=== PATIENT | female | born 1940 | race Caucasian/White ===

== ENCOUNTER → 2019-04-30 10:05 | Outpatient (BNVA) | payer MEDICARE, SELFPAY | PROVIDERS: Visit Provider Emergency Medicine | DX: R07.9 Chest pain, unspecified (principal); R05 Cough | CPT/HCPCS: 71046 ==

== ENCOUNTER 2021-01-25 13:19 | Outpatient (CLI) | payer MEDICARE, SELFPAY ==
--- NOTE | 2021-01-25 13:36 | MR_ITS ---
WS: [id number] MRI LEFT HIP without CONTRAST. COMPARISON: None Multiplanar, multisequence imaging is performed without contrast. Abnormal signal in the LEFT gluteus minimus and medius muscles. More significant increased signal con sistent with edema or myositis in the gluteus medius muscle. There is also increased fluid signal ext ending into the attachment of the gluteus medius to the greater trochanter. There is a small amount o f fluid in the greater trochanter bursa. There is fluid signal extending above the greater trochanter into the gluteus medius along the tendon. No fractures or marrow edema. No free fluid in the pelvis. MR/MR hip LT wo con* [id number] IMPRESSION: 1. Mild LEFT greater trochanteric bursitis. 2. Mild myositis involving the LEFT gluteus minimus and medius muscles. There is a small amount of fluid extending into the gluteus medius suggesting a parti al tendon tear at the greater trochanter.
--- NOTE | 2021-01-25 13:37 | MR_ITS ---
WS: [id number] MRI LUMBAR SPINE NONCONTRAST HISTORY: LUMBAGO WITH SCIATICA, LEFT hip pain for 5 months. COMPARISON: None available. TECHNIQUE: Sagittal and axial multisequence imaging is submitted. Degenerative thoracolumbar scoliosis. RIGHT curvature lumbar spine and LEFT curvature thoracic spine. Increase in the thoracic kyphosis. Small central disc protrusion at T7-8 causing mild contact on the thoracic cord. L4 anterolisthesis by 5 mm. No acute lumbar spine fracture. There is a small amount of marrow edema w ithin the superior and inferior articular facets of L4 and L5 bilaterally with adjacent soft tissue e di from synovitis. Mild disc space narrowing and desiccation throughout the lumbar spine. Conus terminates normally at L1-2 disc level. L1-L2: Mild facet arthritis. No stenosis. L2-L3: Mild annular disc bulging. Moderate ligamentum flavum and facet arthritis. Very mild subarticu lar recess encroachment. No high-grade stenosis. L3-L4: Mild annular disc bulging with a shallow central disc protrusion. Moderate ligamentum flavum a nd facet arthritis. Mild central stenosis with encroachment into the lateral recesses. Mild bilateral foraminal narrowing. L4-L5: Mild anterolisthesis of L4 with unroofing of the disc. Mild encroachment upon the thecal sac b y the disc and ligamentum flavum and facet arthritis. Broad-based disc extends into the LEFT proximal foramen contacting the LEFT L4 and L5 nerve roots. Mild central and RIGHT foraminal stenosis and mod erate on the LEFT. Increased fluid within the LEFT facet joint with widening. L5-S1: Mild disc bulging. No stenosis. Mild facet arthritis. Paravertebral soft tissues are normal. Very mild ectasia abdominal aorta. MR/MR lumbar spine wo con* [id number] IMPRESSION: 1. L4 anterolisthesis by 5 mm. 2. Facet joint inflammatory changes with a small amount of edema in the articu lar facets at L4 and L5 consistent with synovitis. Mild increased fluid within the LEFT facet joint. 3. Broad-based disc protrusion extends into the proximal LEFT foramen at L3-4 with contact on both the RIGHT L4 and L5 nerve roots and moderate stenosis. 4. Mild central and RIGHT foraminal stenosis at L4-5 due to facet and ligament um and disc disease. 5. Mild central, bilateral subarticular recess and foraminal narrowing at L3-4 .
== END 2021-01-25 13:20 | disposition home or self-care (01) ==
PROVIDERS: Visit Provider Family Medicine
DX: M48.061 Spinal stenosis, lumbar region without neurogenic claudication (principal); M51.26 Other intervertebral disc displacement, lumbar region; M70.62 Trochanteric bursitis, left hip; M60.9 Myositis, unspecified
CPT/HCPCS: 72148; 73721

== ENCOUNTER 2021-12-13 11:09 | Emergency (ER) | payer MEDICARE, SELFPAY ==
[2021-12-13 11:15] VITALS: BMI 25.2
--- NOTE | 2021-12-13 11:16 | XRR_ITS ---
PROCEDURE INFORMATION: Exam: XR Chest Exam date and time: 12/13/2021 12:00 PM Age: 81 years old Clinical indication: Pain; Chest pressure; Additional info: Chest pain/pressure TECHNIQUE: Imaging protocol: Radiologic exam of the chest. Views: 1 view. COMPARISON: CR XR chest 2V* [id number] 04/30/2019 10:15 AM FINDINGS: Lungs: There is mildly increased lung markings, suggestive of mild pulmonary congestion. No focal consolidation. Pleural spaces: Unremarkable. No pleural effusion. No pneumothorax. Heart/Mediastinum: Stable cardiomediastinal silhouette. Bones/joints: Degenerative changes of the spine seen. XR/XR chest 1V portable [id number] IMPRESSION: Imaging findings suggestive of mild pulmonary congestion.
[2021-12-13 11:17] VITALS: BP 168/81; PULSE 84; RESP 17; TEMP 36.7; O2SAT 96
--- NOTE | 2021-12-13 11:24 | ECG_ITS ---
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 Measurements Intervals [place] Rate: 81 P: 63 OR: 162 QRS: 52 QRSD: 90 T: 58 QT: 379 QTc: 441 Interpretive Statements SINUS RHYTHM No previous ECG available for comparison Electronically Signed On 12-13-2021 13:53:08 CDT by Ana María Moulton M.D. [id number]
[2021-12-13] MEDS: aspirin 81 mg Chew Tablet 324 MG PO (11:43)
[2021-12-13 11:53] LABS: Basophils % 0.5 %; Eosinophils # 0.2 10^3/uL (0.0-0.8); Eosinophils % 2.5 %; Hemoglobin 14.4 g/dL (11.5-15.3); Lymphocytes # 2.3 10^3/uL (0.8-4.8); Lymphocytes % 29.8 %; Mean Corpuscular HGB Conc 32.7 g/dL (30.0-36.0); Mean Corpuscular Hemoglobin 30.6 pg (28.0-34.0); Mean Corpuscular Volume 93.4 fl (81-99); Mean Platelet Volume 10.1 fL (7.4-10.4); Monocytes # 0.5 10^3/uL (0.2-0.9); Neutrophils # 4.59 10^3/uL (1.8-7.7); Neutrophils % 59.8 %; Nucleated Red Blood Cells % 0 %; Platelet Count 226 10^3/cmm (130-400); Red Blood Count 4.71 10^6/uL (4.1-5.3); Red Cell Distribution Width 13.2 % (12.1-15.1); White Blood Count 7.7 10^3/uL (4.0-10.0)
--- NOTE | 2021-12-13 12:36 | ED_ITS ---
HPI - Chest Pain General: Chief Complaint: Chest Pain Stated Complaint: chest pain/pressure Time Seen by Provider: 12/13/21 11:16 Source: patient Mode of arrival: ambulatory History of Present Illness: 81-year-old female presents emergency room complaining of upper left chest pain. Patient states it feels like it ache she describes it like something caught in her throat although she is able to swallow. Started a few hours earlier today she does not have any accompanying short of breath or radiation of pain. She has not had any discomfort previously no previous history of cardiac disease no previous cardiac testing or francisco luation. Patient is not diabetic she does not smoke. She denies fever sweats chills recent illness. No cough. MD complaint: chest pain Onset (ago): hour(s) Timing of current episode: episodic Onset: during rest Pain location: left chest Pain radiation: none Severity: mild Quality: aching and heaviness Relieving factors: nothing Exacerbating factors: nothing Associated symptoms: Deny abdominal pain, diaphoresis, dyspnea, fever(s), leg edema, nausea, palpitations, sense of impending doom, syncope or vomiting Treatment prior to arrival: none Review of Systems Const: Denies: fever(s), chills, fatigue, malaise or diaphoresis ENMT: Denies: throat pain, ear or mastoid pain, nasal discharge or nasal congestion Card: Reports: chest pain; Denies: palpitations, irregular heart rhythm, edema, swelling of feet/ankles or syncope Resp: Denies: dyspnea GI: Denies: abdominal pain, nausea or vomiting : Denies: flank pain, difficulty voiding, dysuria, urinary frequency or urinary urgency Skin/Breast: Denies: rash or pruritus PFSH ED PFSH: Family History Mother Stroke Father Cancer lung cancer Social History Smoking and tobacco status: former smoker Quit status (tobacco): has quit using tobacco Year quit tobacco: 1990 Second hand smoke exposure: No Alcohol intake: current Alcohol intake frequency: holidays/special occasions only Alcohol type: wine History of recent travel: No Physical Exam Const: COMMON NORMALS: no acute distress GENERAL APPEARANCE: cooperative and comfortable ORIENTATION/CONSCIOUSNESS: Yes awake, Yes oriented to person, Yes oriented to place and Yes oriented to time HENMT: COMMON NORMALS: normocephalic, atraumatic and hearing grossly normal bilaterally HEAD & SCALP: normocephalic and atraumatic Lymph: LYMPHATIC: no lymphadenopathy noted and no lymphedema noted Resp: COMMON NORMALS: normal respiratory effort, No retractions, No use of acc essory muscles and clear to auscultation bilaterally AUSCULTATION: clear to auscultation bilaterally Cardio: COMMON NORMALS: regular rate, regular rhythm and No murmurs present (Cardio) RATE: regular rate RHYTHM: regular rhythm GI: COMMON NORMALS: Soft to palpation and No hepatosplenomegaly present AUSCULTATION: Yes normoactive bowel sounds PALPATION: Yes Soft to palpation, No Tenderness to palpation present (GI), No Guarding due to palpation present (G I) and Yes No hepatosplenomegaly present Extremity: COMMON NORMALS: normal to inspection, capillary refill normal, no clubbing, cyanosis or edema, no calf tenderness and no pedal edema Neuro: SENSORIUM/ORIENTATION: Yes oriented to person, Yes oriented to place and Yes oriented to time Skin: COMMON NORMALS: no rashes or lesions noted GENERAL SKIN EXAM: no rashes or lesions noted Course Vital Signs: Vital signs: Vital Signs Temperature 98.0 F 12/13/21 11:17 Pulse Rate 84 12/13/21 11:17 Respiratory Rate 17 12/13/21 11:17 Blood Pressure 168/81 12/13/21 11:17 Pulse Oximetry 96 12/13/21 11:17 Oxygen Delivery Me thod 12/13/21 11:17 MDM - Chest Pain Medical Decision Making Labs imaging and EKG reviewed as found in the chart. We will discharge patient home set up outpatient [facility] sestamibi stress test are Prilosec 20 p.o. daily and aspirin 81 mg daily avoid strenuous activity. Medical Records I reviewed the patient's medical records. Lab Data I reviewed the patient's lab results. : 12/13/21 11:49 12/13/21 11:34 Radiology Impressions Chest X-Ray 12/13/21 11:16 IMPRESSION: Imaging findings suggestive of mild pulmonary congestion. Laboratory Results WBC 7.7 10^3/uL (4.0-10.0) 12/13/21 11:49 RBC 4.71 10^6/uL (4.1-5.3) 12/13/21 11:49 Hgb 14.4 g/dL (11.5-15.3) 12/13/21 11:49 Hct 44.0 % (37.0-47.0) 12/13/21 11:49 MCV 93.4 fl (81-99) 12/13/21 11:49 MCH 30.6 pg (28.0-34.0) 12/13/21 11:49 MCHC 32.7 g/dL (30.0-36.0) 12/13/21 11:49 RDW 13.2 % (12.1-15.1) 12/13/21 11:49 Plt Count 226 10^3/cmm (130-400) 12/13/21 11:49 MPV 10.1 fL (7.4-10.4) 12/13/21 11:49 Neut % (Auto) 59.8 % 12/13/21 11:49 Lymph % (Auto) 29.8 % 12/13/21 11:49 [place] % (Auto) 7.0 % 12/13/21 11:49 Eos % (Auto) 2.5 % 12/13/21 11:49 Baso % (Auto) 0.5 % 12/13/21 11:49 Neut # (Auto) 4.59 10^3/uL (1.8-7.7) 12/13/21 11:49 Lymph # (Auto) 2.3 10^3/uL (0.8-4.8) 12/13/21 11:49 [place] # (Auto) 0.5 10^3/uL (0.2-0.9) 12/13/21 11:49 Eos # (Auto) 0.2 10^3/uL (0.0-0.8) 12/13/21 11:49 Baso # (Auto) 0.0 10^3/uL (0.0-0.1) 12/13/21 11:49 Nucleated RBC % (auto) 0 % 12/13/21 11:49 Nucleated RBCs # 0.0 /100WBC 12/13/21 11:49 Sodium Cancelled 12/13/21 11:49 Potassium Cancelled 12/13/21 11:49 Chloride Cancelled 12/13/21 11:49 Carbon Dioxide Cancelled 12/13/21 11:49 Anion Gap Cancelled 12/13/21 11:49 BUN Cancelled 12/13/21 11:49 Creatinine Cancelled 12/13/21 11:49 GFR Calculation Cancelled 12/13/21 11:49 Glucose Cancelled 12/13/21 11:49 Calculated Osmolality Cancelled 12/13/21 11:49 Calcium Cancelled 12/13/21 11:49 Total Bilirubin Cancelled 12/13/21 11:49 AST Cancelled 12/13/21 11:49 ALT Cancelled 12/13/21 11:49 Alkaline Phosphatase Cancelled 12/13/21 11:49 Troponin T Baseline Cancelled 12/13/21 11:49 Troponin T 120 Minute 6.00 ng/L (0-10) 12/13/21 13:59 Delta Troponin T 0 ABS# (0-10) 12/13/21 13:59 NT-Pro-B Natriuret Pep Cancelled 12/13/21 11:49 Total Protein Cancelled 12/13/21 11:49 Albumin Cancelled 12/13/21 11:49 Globulin Cancelled 12/13/21 11:49 Discharge Plan Discharge Patient Disposition: Home Clinical Impression: Atypical chest pain Condition: Stable Prescriptions: New omeprazole 20 mg capsule,delayed release(DR/EC) 20 mg PO DAILY 28 Days Qty: 30 0RF aspirin 81 mg tablet,delayed release (DR/EC) 81 mg PO DAILY Qty: 30 0RF No Action albuterol sulfate 90 mcg/actuation HFA aerosol inhaler 2 puff INHALATION Q6H PRN (Reason: shortness of breath or wheezing) Qty: 8.5 0RF [id number]-[id number]-[id number] [Bromfed DM] 2-30-10 mg/5 mL syrup 5 ml PO Q6H PRN (Reason: cold symptoms) Qty: 160 0RF Discharge Orders: Discharge ED (Routine); Ordered 12/13/21 Ordered By: August Rios Referrals: Domenic Holloway [Primary Care Provider] - Patient Instructions: Opioid Safety, Pain Management Activity Restrictions/Additional Instructions: Limit exertional activity. Take aspirin 81 mg daily. Start omeprazole 20 mg daily Case management make arrangements. Of a Lexiscan sestamibi stress test. Coding Level of Care Code ED Wire Twister for Chg Fwd Exam Comprehensive
--- NOTE | 2021-12-13 13:16 | ECG_ITS ---
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 Measurements Intervals [place] Rate: 66 P: 55 [place]: 194 QRS: 5 QRSD: 92 T: 32 QT: 434 QTc: 458 Interpretive Statements SINUS RHYTHM POSSIBLE RIGHT VENTRICULAR CONDUCTION DELAY [RSR (QR) IN V1/V2] Compared to ECG 12/13/2021 11:24:22 No significant changes Electronically Signed On 12-13-2021 13:55:08 CDT by Ana María Moulton M.D. [id number]
[2021-12-13 13:21] LABS: Troponin(5th) Baseline 6 ng/L (0-10)
[2021-12-13 13:29] LABS: Alanine Aminotransferase 13 U/L (0-33); Albumin Level 3.7 g/dL (3.5-5.2); Alkaline Phosphatase 79 U/L (35-105); Anion Gap 13.2 (5-19); Aspartate Amino Transferase 15 U/L (0-32); Blood Urea Nitrogen 12 mg/dL (8-23); Calcium 8.9 mg/dL (8.5-10.5); Carbon Dioxide 27 mmol/L (22-29); Chloride 102 mmol/L (98-107); Creatinine Clr Calc Pharmacy 54.6785; Globulin 2.3 g/dL (1.3-4.6); Glucose 76 mg/dL (65-115); NT Pro B Type Natriuretic Pept 240 pg/mL (0-450); Osmolality Calculated 285 mOsm/kg (285-295); Potassium 4.2 mmol/L (3.5-5.1); Sodium 138 mmol/L (136-145); Total Bilirubin 0.2 mg/dL (0.15-1.2)
[2021-12-13 14:54] LABS: Troponin 5 2HR Delta 0 ABS# (0-10)
--- NOTE | 2021-12-14 14:44 | DCPLANNER ---
Addendum entered by Veronica Thomas 03/21/22 14:00: Patient had a stress test scheduled - patient did attend appointment. Original Note: business change manager had message to schedule an outpatient stress test for patient. business change manager faxed signed order to centralized scheduling, who will call patient with appointment information. business change manager sent notification to patients primary care physician, that ER physician ordered a stress test from the ER.
== END 2021-12-13 14:54 | disposition home or self-care (01) ==
PROVIDERS: Emergency Provider Family Medicine; PCP Family Medicine
DX: R07.89 Other chest pain (principal)
CPT/HCPCS: 36415; 71045; 80053; 83880; 84484; 85025; 93005; 99285

== ENCOUNTER 2022-02-23 10:20 | Outpatient (CLI) | payer MEDICARE, SELFPAY ==
--- NOTE | 2022-02-23 | ECG_ITS ---
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 Interpretive Statements NAME OF STUDY: LEXISCAN SESTAMIBI STRESS TEST INDICATION: Chest Pain PROCEDURE: At the baseline, the blood pressure was 145/80 mmHg with a heart rate of 76 bpm. The electrocardiogram showed sinus rhythm, normal axis with normal ST-T's. The Lexiscan was infused over a period of 20 seconds. A total of 0.4 milligrams of Lexiscan was infused. The stress phase was continued for a total of 5 minutes. Heart rate at the end of the stress phase was 106 bpm with a blood pressure of 147/72 mmHg. The EKG at the peak infusion revealed no significant ST-T wave changes. Sestamibi was injected 20 seconds after the Lexiscan infusion. Blood pressure at the end of the recovery phase was 136/77 mmHg with a heart rate of 97 beats per minute. CONCLUSION: 1. No significant EKG changes with the LexiScan infusion. 2. No LexiScan induced chest pain or cardiac arrhythmia. 3. Normal blood pressure and heart rate response. 4. Sestamibi/sestamibi perfusion scan pending; see separate report. Electronically Signed On 02-28-2022 16:03:08 CENTRAL OFFICE ASSOCIATE by Ana María Moulton M.D. [id number]
[2022-02-23 11:05] VITALS: BMI 26.6
--- NOTE | 2022-02-23 11:07 | NMCV_ITS ---
NM neto perf SPECT r/s* [id number] Carole Sandra Age: 81 Gender: F : 1940 Exam Date: 02/23/2022 11:36 Ordering Phys: August Rios DO Technologist: ARIES Cano Exam Location: [facility] Indications: CHEST PAIN STRESS TEST Please see separate stress test report in [facility] for full findings IMAGE PROTOCOL Rest/Stress 1 Lexiscan Day Radiopharmaceutical Dose (mCi) Administration Site Administered by Rest: Tc-99m 10.5 IV ARIES Fisher Sestamibi Stress:Tc-99m 32.7 IV ARIES Fisher Sestamibi Rest: 23-Feb-2022 60 Discovery 630 Stress: 23-Feb-2022 30 Discovery 630 0.4mg Lexiscan. Images obtained in supine and prone position. SPECT RESULTS Technical Quality: Good Raw Data Analysis: Normal Image Corrections: Patient motion artifact - motion correction applied Summed Stress Score: 4 Summed Rest Score: 5 Summed Difference Score: 2 PERFUSION FINDINGS Small size perfusion abnormality of mild severity of mid inferolateral, apical lateral and apical septal fine on rest images with improved tracer uptake on stress images. This is suggestive of attenuation artifact. FUNCTIONAL RESULTS (calculated via Gated SPECT) Stress Image LV EF (%): 85 Stress EDV (mL):47 TID: 1.08 Stress ESV (mL):7 FUNCTIONAL FINDINGS: The left ventricle is normal in size. Transient Ischemia Dilatation of 1.1. There is normal left ventricular systolic function. The left ventricular ejection fraction is reduced with a value of 85%. There is normal left ventricular wall thickening. IMPRESSIONS 1. Myocardial perfusion imaging is normal. 2. Overall left ventricular systolic function is normal without regional wall motion abnormalities. LVEF=85%. 3. EKG portion of the study will be reported separately. 4. Scan indicates low risk for cardiac events. Ana María Moulton MD (Electronically Signed) Final Date: 28 February 2022 16:00 S
[2022-02-23] MEDS: regadenoson 0.4 Mg/5 ml Syringe IVP (12:45)
[2022-02-23 12:50] VITALS: BP 136/77; PULSE 94
== END 2022-02-23 10:21 | disposition home or self-care (01) ==
LOC: CDL 10:23
PROVIDERS: PCP Family Medicine; Visit Provider Family Medicine
DX: R06.02 Shortness of breath (principal)
CPT/HCPCS: 36415; 78452; 93017; 96374; A9500; J2785

== ENCOUNTER → 2022-03-08 12:40 | Outpatient (BNVA) | payer MEDICARE, SELFPAY | PROVIDERS: PCP Family Medicine; Visit Provider Emergency Medicine | DX: R05.9 Cough, unspecified (principal); R06.02 Shortness of breath; I10 Essential (primary) hypertension; R05.3 Chronic cough | CPT/HCPCS: 80048; 83880 ==

== ENCOUNTER → 2023-03-17 13:13 | Outpatient (BNVA) | payer MEDICARE, SELFPAY | PROVIDERS: PCP Family Medicine; Visit Provider Nurse Practitioner Family | DX: N39.0 Urinary tract infection, site not specified (principal) | CPT/HCPCS: 81000; 87086 ==